=== PATIENT | female | born 1965 | race Caucasian/White ===

== ENCOUNTER 2022-03-16 20:29 | Emergency (ER) | payer BC ==
[~2022-03-16] VITALS: Ht 162.6 cm; Wt 102.2 kg
[2022-03-16 22:54] VITALS: BP 134/78
== END 2022-03-16 22:59 | disposition home or self-care (01) | DRG 605 ==
LOC: ED 20:29
DX: S50.11XA Contusion of right forearm, initial encounter (principal); I10 Essential (primary) hypertension; E11.9 Type 2 diabetes mellitus without complications; W01.0XXA Fall on same level from slipping, tripping and stumbling without subsequent striking against object, initial encounter; Z21 Asymptomatic human immunodeficiency virus [HIV] infection status